=== PATIENT | female | born 1985 ===

== ENCOUNTER 2016-10-16 11:08 | Inpatient (IN) | payer BC, OTHER ==
[~2016-10-16] VITALS: Ht 175.3 cm; Wt 98.1 kg
[2016-11-11] MEDS ORDERED: PRENATAL PLUS PO (14:16)
[2016-11-11] MEDS ORDERED: OSCAL 500 TAB500 MG PO (14:16)
[2016-11-11] MEDS ORDERED: CEPHALEXIN500 M1 (14:16)
[2016-11-13] VITALS (32 sets, daily range): BP systolic 110–128; BP diastolic 59–89; PULSE 57–100; TEMP 89.4–98.4
[2016-11-13] MEDS ORDERED: ZANTAC 150MG T150 MG PO (07:09)
[2016-11-13 07:11] LABS: BASO % 0.2 % (0.0-2.0); EOS # 0.1 (0.0-0.7); EOS % 0.7 % (0-4.0); GRAN # 5.7 (1.4-6.5); GRAN % 59.3 % (42.2-75.2); LYMPH % 31.1 % (20.0-51.0); MEAN CELL VOLUME 86 fl (80.0-100.0); MEAN CORPUSCULAR HGB CONC 33 g/dl (33.0-37.0); MEAN PLATELET VOLUME 11.3 fl (7.4-10.4); MONO # 0.8 (0.1-0.6); MONO % 8.1 % (1.7-9.3); PLATELET COUNT 249 K/mm3 (130-400); WHITE BLOOD COUNT 9.7 K/mm3 (4.8-10.8)
[2016-11-13 07:12] LABS: HEMATOCRIT 31.7 % (37.0-47.0); HEMOGLOBIN 10.5 g/dl (12.5-16.0); MEAN CORPUSCULAR HEMOGLOBIN 28 pg (27.0-31.0)
[2016-11-13] MEDS ORDERED: MOTRIN 800800 MG/TAB PO (08:22)
[2016-11-13] MEDS ORDERED: PERCOCET 325 MG1 TA2 PO (08:22)
[2016-11-14 00:08] VITALS: BP 116/71; PULSE 73; TEMP 97.6
[2016-11-14 04:15] VITALS: BP 113/78; PULSE 88; TEMP 98
[2016-11-14 07:00] VITALS: BP 113/74; PULSE 78; TEMP 98
== END 2016-11-14 14:31 | disposition home or self-care (01) | DRG 775 ==
LOC: LDR 11-13 06:45 → OB 11-13 15:15 → EDSTATUS 11-20 08:30 → LDRO 11-20 11:08
PROVIDERS: Obstetrics & Gynecology
PROC: 10E0XZZ Delivery of Products of Conception, External Approach (ICD-10-PCS; principal; 2016-11-13)
PROC: 3E033VJ Introduction of Other Hormone into Peripheral Vein, Percutaneous Approach (ICD-10-PCS; 2016-11-13)
DX: O69.81X0 Labor and delivery complicated by cord around neck, without compression, not applicable or unspecified (principal); Z3A.39 39 weeks gestation of pregnancy; Z37.0 Single live birth
CPT/HCPCS: J2405; J2590; J2795; J7120

== ENCOUNTER 2016-11-11 13:23 | Outpatient (CLI) | payer BC, OTHER ==
[~2016-11-11] VITALS: Ht 175.3 cm; Wt 99.1 kg
[2016-11-11 14:09] VITALS: BP 119/76; PULSE 110; TEMP 97.8
[2016-11-11] MEDS ORDERED: CEPHALEXIN500 M1 (14:16)
[2016-11-11] MEDS ORDERED: PRENATAL PLUS PO (14:16)
[2016-11-11] MEDS ORDERED: OSCAL 500 TAB500 MG PO (14:16)
[2016-11-11 14:30] VITALS: BP 119/76; PULSE 110; TEMP 98
== END 2016-11-11 14:35 | disposition home or self-care (01) ==
LOC: LDRO 13:23
DX: Z34.83 Encounter for supervision of other normal pregnancy, third trimester (principal); Z3A.38 38 weeks gestation of pregnancy